=== PATIENT | male | born 1980 | race Caucasian/White ===

== ENCOUNTER → 2018-11-06 11:36 | Outpatient (CLI) | payer OTHER, SELFPAY ==
--- NOTE | 2018-11-06 | DI.RAD.S_ITS ---
PROCEDURE: XR WRIST LT MIN 3V INDICATIONS: LEFT WRIST PAIN TECHNIQUE: 4 views of the wrist were acquired. COMPARISON: None. FINDINGS: Bones: No fractures or dislocations. No suspicious bony lesions. Scaphoid view: Negative Soft tissues: No suspicious soft tissue calcifications. IMPRESSION: Negative exam. If the patient's pain or other symptoms persist, consider further evaluation with MRI Dictated by: Ludwin Lo M.D. on 11/06/2018 at 15:08 Approved by: Ludwin Lo M.D. on 11/06/2018 at 15:12
== END ==
PROVIDERS: PCP Family Medicine; Visit Provider Family Medicine
DX: M25.532 Pain in left wrist (principal)
CPT/HCPCS: 73110